=== PATIENT | male | born 1955 | race Two or more races ===

== ENCOUNTER 2016-08-12 11:59 | Observation (INO) | payer MEDICAID, OTHER ==
[~2016-08-12] VITALS: Ht 177.8 cm; Wt 179.2 kg
[2016-08-12] MEDS ORDERED: MORPHINE SULF INJ 2 MG/ML SYRINGE 1ML IV ONE (12:30)
[2016-08-12] MEDS ORDERED: ONDANSETRON HCL 4 MG/2 ML VIAL IV ONE (12:30)
[2016-08-12 13:12] LABS: Basophils # (auto) 0 uL; Basophils % (auto) 0.4 % (0.0-2.0); Eosinophils # (auto) 0.2 uL; Eosinophils % (auto) 2.4 % (0.0-7.0); Hematocrit 41.3 % (41.0-53.0); Hemoglobin 13.7 g/dL (13.5-17.5); Lymphocytes # (auto) 1.7 uL; Lymphocytes % (auto) 23.3 % (10.0-50.0); Mean Corpuscular Hemoglobin 27.5 pg (28.0-32.0); Mean Corpuscular Hgb Conc. 33.2 g/dL (32.0-36.0); Mean Corpuscular Volume 82.9 fL (80.0-100.0); Mean Platelet Volume 7.4 fL (7.4-10.4); Monocytes # (auto) 0.4 uL; Monocytes % (auto) 5.6 % (0.0-12.0); Neutrophils # (auto) 5.1 uL; Neutrophils % (auto) 68.3 % (37.0-80.0); Platelet Count (auto) 333 10^3/uL (140-450); White Blood Cell 7.4 10^3/uL (4.4-10.8)
[2016-08-12 13:29] LABS: INR 1.05 (0.9-1.15); Partial Thromboplastin Time 28.5 sec (22.64-33.71); Prothrombin Time 11.4 sec (9.37-12.3)
[2016-08-12 13:36] LABS: Albumin 3.4 g/dL (3.4-5.0); Alkaline Phosphatase 92 U/L (45-117); Anion Gap 7 (5-15); Aspartate Aminotransferase 10 U/L (15-37); BUN/Creatinine Ratio 12.9; Bilirubin, Total 0.3 mg/dL (0.2-1.0); Blood Urea Nitrogen 12 mg/dL (7-18); Calcium 8.8 mg/dL (8.5-10.1); Carbon Dioxide 28 mmol/L (21-32); Chloride 98 mmol/L (98-107); GFR African American 107 mL/min; GFR Non-African American 88 mL/min; Glucose 238 mg/dL (74-106); Magnesium 1.8 mg/dL (1.6-2.6); Potassium 4.1 mmol/L (3.5-5.1); Sodium 133 mmol/L (136-145); Total Protein 8.2 g/dL (6.4-8.2)
[2016-08-12 13:40] LABS: B-Type Natriuretic Peptide 8.45 pg/mL (0-100)
[2016-08-12 13:41] LABS: Temperature: 22.3 C (20.0-25.0)
[2016-08-12 17:05] VITALS: BP 124/88
== END 2016-08-12 17:22 | disposition home or self-care (01) | DRG 198 ==
LOC: ER 11:59 → EDBD 11:59 → OVERFLOW 12:19 → ER 17:22
PROVIDERS: ADMIT Family Medicine; ATTEND Family Medicine
DX: I20.0 Unstable angina (principal); E87.1 Hypo-osmolality and hyponatremia; D89.9 Disorder involving the immune mechanism, unspecified; I10 Essential (primary) hypertension; K43.9 Ventral hernia without obstruction or gangrene; Z82.49 Family history of ischemic heart disease and other diseases of the circulatory system; Z83.3 Family history of diabetes mellitus
CPT/HCPCS: 36415; 71010; 80053; 83735; 83880; 84443; 84484; 85025; 85610; 85730; 93005; 96374; 96375; 99285; G0378; J2270; J2405

== ENCOUNTER 2018-07-25 08:28 | Emergency (ER) | payer OTHER ==
[2018-07-25] MEDS ORDERED: NITROGLYCERIN 0.4 MG SL TAB SL ONE (09:15)
[2018-07-25] MEDS ORDERED: ASPirin 81 mg TAB PO ONE (09:15)
[2018-07-25] MEDS ORDERED: MORPHINE SULFATE 4 MG/ML SYR/VIAL IV ONE (09:30)
[2018-07-25] MEDS ORDERED: ONDANSETRON HCL 4 MG/2 ML VIAL IV ONE (09:30)
[2018-07-25 09:36] LABS: Basophils # (auto) 0.1 uL; Basophils % (auto) 1.2 % (0.0-2.0); Eosinophils # (auto) 0.4 uL; Hematocrit 42.1 % (41.0-53.0); Lymphocytes # (auto) 1.8 uL; Lymphocytes % (auto) 29.1 % (10.0-50.0); Mean Corpuscular Hemoglobin 27.6 pg (28.0-32.0); Mean Corpuscular Hgb Conc. 33.3 g/dL (32.0-36.0); Mean Corpuscular Volume 82.9 fL (80.0-100.0); Monocytes # (auto) 0.5 uL; Monocytes % (auto) 7.6 % (0.0-12.0); Neutrophils # (auto) 3.4 uL; Neutrophils % (auto) 55.1 % (37.0-80.0); Nucleated Red Blood Cells % 0.1 %; Platelet Count (auto) 295 10^3/uL (140-450); Red Blood Cells 5.08 10^6/uL (4.5-5.90); Red Cell Distribution Width 13.9 % (11.8-14.3); White Blood Cell 6.3 10^3/uL (4.4-10.8)
[2018-07-25 09:46] LABS: Albumin 3.6 g/dL (3.4-5.0); Anion Gap 7 (5-15); Blood Urea Nitrogen 10 mg/dL (7-18); Calcium 8.9 mg/dL (8.5-10.1); Carbon Dioxide 29 mmol/L (21-32); Chloride 102 mmol/L (98-107); Glucose 140 mg/dL (74-106); Magnesium 1.9 mg/dL (1.6-2.6); Potassium 3.7 mmol/L (3.5-5.1); Sodium 138 mmol/L (136-145)
[2018-07-25 09:50] LABS: INR 1.04 (0.9-1.15); Partial Thromboplastin Time 29.8 sec (23.64-32.05); Prothrombin Time 11.2 sec (9.06-12.60)
[2018-07-25 09:52] LABS: Alanine Aminotransferase 15 U/L (16-61); Alkaline Phosphatase 74 U/L (45-117); Aspartate Aminotransferase 9 U/L (15-37); BUN/Creatinine Ratio 10.8; Bilirubin, Total 0.6 mg/dL (0.2-1.0); GFR African American 107 mL/min; GFR Non-African American 88 mL/min; Total Protein 8.1 g/dL (6.4-8.2)
[2018-07-25] MEDS ORDERED: ALBUTEROL SULF 2.5 MG/0.5ML(0.5%) NEB SOLN NEB ONE (13:15)
[2018-07-25] MEDS ORDERED: IPRATROPIUM BROM 0.5 MG/2.5ML INH SOL NEB ONE (13:15)
[2018-07-25 14:20] VITALS: BP 160/101
== END 2018-07-25 15:16 | disposition home or self-care (01) ==
LOC: ER 08:28
DX: I24.9 Acute ischemic heart disease, unspecified (principal); I10 Essential (primary) hypertension; E11.9 Type 2 diabetes mellitus without complications; I25.2 Old myocardial infarction
CPT/HCPCS: 36415; 71045; 80053; 82962; 83735; 84484; 85025; 85610; 85730; 93005; 94640; 94761; 96374; 96375; 99285; J2270; J2405; J7611; J7644